=== PATIENT | male | born 1940 | race Caucasian/White ===

== ENCOUNTER → 2017-07-10 | Outpatient (CLI) | payer MEDICARE, OTHER | LOC: RESP 21:06 | PROVIDERS: ATTEND Nurse Practitioner Psychiatric/Mental Health | DX: G47.33 Obstructive sleep apnea (adult) (pediatric) (principal); G47.36 Sleep related hypoventilation in conditions classified elsewhere; E66.3 Overweight ==

== ENCOUNTER → 2017-09-17 | Outpatient (CLI) | payer MEDICARE, OTHER | LOC: RESP 20:58 | PROVIDERS: ATTEND Nurse Practitioner Psychiatric/Mental Health | DX: G47.33 Obstructive sleep apnea (adult) (pediatric) (principal); G47.36 Sleep related hypoventilation in conditions classified elsewhere ==

== ENCOUNTER → 2018-05-27 | Outpatient (CLI) | payer MEDICARE, OTHER ==
--- NOTE | 2018-05-27 13:57 | RADIOLOGY IMAGING REPORT ---
FACILITY: [facility] [place] PATIENT NAME: Magdy Persaud : 1940 MR: [id number] V: [id number] EXAM DATE: ORDERING PHYSICIAN: MIREYA PEREZ TECHNOLOGIST: Location: [facility] Patient: Magdy Persaud : 1940 Visit/Account:[id number] Date of Sevice: 05/27/2018 Exam type: US VENOUS LOWER EXT RT History: Right leg pain and edema Comparison: None. Findings: The right lower extremity veins are imaged including the right common femoral vein greater saphenous vein superficial femoral vein popliteal vein posterior tibial vein peroneal vein and anterior tibial vein revealing no evidence of intraluminal thrombi the veins were compressible and demonstrated augme ntation IMPRESSION: 1. No sonographic evidence of DVT involving the right lower extremity veins Report Dictated By: Tanja De Anda MD at 05/27/2018 1:22 PM Report E-Signed By: Tanja De Anda MD at 05/27/2018 1:52 PM WSN:[id number]
== END ==
LOC: US 11:51
PROVIDERS: ATTEND Nurse Practitioner Family
DX: R60.0 Localized edema (principal)